=== PATIENT | female | born 1955 | race Two or more races ===

== ENCOUNTER 2018-04-29 06:18 | Day surgery (SDC) | payer MEDICARE, OTHER ==
[2018-04-29] MEDS ORDERED: LIDOCAINE-MPF 2% 5 ML VIAL ONE (06:30)
[2018-04-29] MEDS ORDERED: TIMOLOL MALEATE 0.5% OPHT DROP 5 ML BOTTLE ONE (06:30)
[2018-04-29] MEDS ORDERED: MOXIFLOXACIN HCL 3 ML OPHT DROPS ONE (06:30)
[2018-04-29] MEDS ORDERED: NEO/POLYMYX B/DEXAME OPHT OINT 3.5 GM TUBE ONE (06:30)
[2018-04-29] MEDS ORDERED: HYALURONATE SODIUM 12.8 MG/0.8 ML DISP.SYRIN ONE (06:31)
[2018-04-29] MEDS ORDERED: HYALURONIDASE,OVINE 200 UNITS/ML VIAL ONE (06:31)
[2018-04-29] MEDS ORDERED: TETRACAINE HCL 0.5% OPHT DROP 2 ML BOTTLE ONE (06:31)
[2018-04-29] MEDS ORDERED: HYALURONATE SODIUM 8.5 MG/0.85 ML DISP.SYRIN ONE (06:31)
[2018-04-29] MEDS ORDERED: BALANCED SALT IRRIG SOLN COMB2 15 ML IRRIG.SOLN ONE (06:31)
[2018-04-29] MEDS ORDERED: BUPIVACAINE PF 0.5% 30 ML VIAL ONE (06:31)
[2018-04-29] MEDS ORDERED: ACETYLCHOLINE CHLORIDE 1% OPHT 1 EA KIT ONE (06:31)
[2018-04-29] MEDS ORDERED: PHENYLEPHRINE 2.5% OPHT DROP 2 ML BOTTLE ONE (06:32)
[2018-04-29] MEDS ORDERED: CYCLOPENTOLATE 1% OPHT DROP 2 ML BOTTLE ONE (06:32)
[2018-04-29] MEDS ORDERED: CIPROFLOXACIN 0.3% OPHT DROP 2.5 ML BOTTLE ONE (06:32)
[2018-04-29] MEDS ORDERED: TROPICAMIDE 1% OPHT DROP 3 ML BOTTLE ONE (06:32)
[2018-04-29] MEDS ORDERED: KETOROLAC 0.5% OPHT DROP 3 ML BOTTLE ONE (06:33)
[2018-04-29] MEDS ORDERED: BALANCED SALT IRRIG SOLN COMB1 500 ML, EPINEPHRINE-PF 1:1000 0.5 MG IO ONE ×2 (07:00)
[2018-04-29] MEDS ORDERED: SUCCINYLCHOLINE CHLORIDE 200 MG/10 ML VIAL ONE (07:54)
[2018-04-29] MEDS ORDERED: FENTANYL CITRATE 100 MCG/2 ML AMPUL ONE (07:54)
== END 2018-04-29 10:10 ==
LOC: DS 06:18
PROVIDERS: ATTEND Ophthalmology
DX: E11.36 Type 2 diabetes mellitus with diabetic cataract (principal); I12.0 Hypertensive chronic kidney disease with stage 5 chronic kidney disease or end stage renal disease; E11.22 Type 2 diabetes mellitus with diabetic chronic kidney disease; N18.6 End stage renal disease; Z99.2 Dependence on renal dialysis; Z79.84 Long term (current) use of oral hypoglycemic drugs; E11.51 Type 2 diabetes mellitus with diabetic peripheral angiopathy without gangrene; I25.10 Atherosclerotic heart disease of native coronary artery without angina pectoris; F32.9 Major depressive disorder, single episode, unspecified; I21.3 ST elevation (STEMI) myocardial infarction of unspecified site; D64.9 Anemia, unspecified
CPT/HCPCS: 66984; 71045; 82962; J0171; J3010; J3471; J3490 ×2; J7321 ×2; V2632; A4663; J0330; J7030

== ENCOUNTER 2018-07-08 05:58 | Day surgery (SDC) | payer MEDICARE, OTHER ==
[~2018-07-08 05:58] MED LIST: BALANCED SALT IRRIG SOLN COMB1 500 ML, EPINEPHRINE-PF 1:1000 0.5 MG IO ONE
[2018-07-08] MEDS ORDERED: diphenhydrAMINE 50 MG/1 ML VIAL IM ONE (05:59)
[2018-07-08] MEDS ORDERED: ONDANSETRON 4 MG/2 ML VIAL IV ONE (05:59)
[2018-07-08] MEDS ORDERED: CIPROFLOXACIN 0.3% OPHT DROP 2.5 ML BOTTLE ONE (06:55)
[2018-07-08] MEDS ORDERED: KETOROLAC 0.5% OPHT DROP 3 ML BOTTLE ONE (06:55)
[2018-07-08] MEDS ORDERED: CYCLOPENTOLATE 1% OPHT DROP 2 ML BOTTLE ONE (06:55)
[2018-07-08] MEDS ORDERED: PHENYLEPHRINE 2.5% OPHT DROP 2 ML BOTTLE ONE (06:56)
[2018-07-08] MEDS ORDERED: TROPICAMIDE 1% OPHT DROP 3 ML BOTTLE ONE (06:56)
[2018-07-08] MEDS ORDERED: BALANCED SALT IRRIG SOLN COMB1 500 ML, EPINEPHRINE-PF 1:1000 0.5 MG IO ONE ×2 (07:00)
[2018-07-08] MEDS ORDERED: MOXIFLOXACIN HCL 3 ML OPHT DROPS ONE (07:04)
[2018-07-08] MEDS ORDERED: NEO/POLYMYX B/DEXAME OPHT OINT 3.5 GM TUBE ONE (07:05)
[2018-07-08] MEDS ORDERED: TETRACAINE HCL 0.5% OPHT DROP 2 ML BOTTLE ONE (07:05)
[2018-07-08] MEDS ORDERED: TIMOLOL MALEATE 0.5% OPHT DROP 5 ML BOTTLE ONE (07:05)
[2018-07-08] MEDS ORDERED: LIDOCAINE-MPF 2% 5 ML VIAL ONE (07:05)
[2018-07-08] MEDS ORDERED: ACETYLCHOLINE CHLORIDE 1% OPHT 1 EA KIT ONE (07:06)
[2018-07-08] MEDS ORDERED: HYALURONIDASE,OVINE 200 UNITS/ML VIAL ONE (07:06)
[2018-07-08] MEDS ORDERED: BUPIVACAINE PF 0.5% 30 ML VIAL ONE (07:06)
[2018-07-08] MEDS ORDERED: BALANCED SALT IRRIG SOLN COMB2 15 ML IRRIG.SOLN ONE (07:06)
[2018-07-08] MEDS ORDERED: HYALURONATE SODIUM 12.8 MG/0.8 ML DISP.SYRIN ONE (07:07)
[2018-07-08] MEDS ORDERED: HYALURONATE SODIUM 8.5 MG/0.85 ML DISP.SYRIN ONE (07:07)
[2018-07-08] MEDS ORDERED: FENTANYL CITRATE 100 MCG/2 ML AMPUL ONE (07:36)
[2018-07-08] MEDS ORDERED: MIDAZOLAM HCL 2 MG/2 ML VIAL ONE (07:36)
[2018-07-08] MEDS ORDERED: SUCCINYLCHOLINE CHLORIDE 200 MG/10 ML VIAL ONE (07:37)
[2018-07-08] MEDS ORDERED: ATROPINE SULFATE 1% OPHT DROP 2 ML ONE (07:53)
[2018-07-08] MEDS ORDERED: BALANCED SALT IRRIG SOLN COMB1 0 ML ONE (08:18)
== END 2018-07-08 10:20 ==
LOC: DS 05:58
PROVIDERS: ATTEND Ophthalmology
DX: E11.36 Type 2 diabetes mellitus with diabetic cataract (principal); E11.22 Type 2 diabetes mellitus with diabetic chronic kidney disease; I12.0 Hypertensive chronic kidney disease with stage 5 chronic kidney disease or end stage renal disease; N18.6 End stage renal disease; K21.9 Gastro-esophageal reflux disease without esophagitis; F32.9 Major depressive disorder, single episode, unspecified; E78.5 Hyperlipidemia, unspecified; Z88.2 Allergy status to sulfonamides
CPT/HCPCS: 66984; 82962 ×2; J0171; J1200; J2405; J3010; J3471; J3490 ×2; J7321 ×2; V2632; A4663; J0330; J2250; J7030